=== PATIENT | female | born 1940 | race Caucasian/White ===

== ENCOUNTER → 2018-08-30 | Outpatient (CLI) | payer MEDICARE ==
[~2018-08-30] MED LIST: CATHETER FLUSH 10 ML SYR IV PRN; HOLD METFORMIN - RECEIVED CONTRAST 20 ML VIAL IV SCH; IOHEXOL 350 MG/ML 150 ML (OMNIPAQUE 350) VIAL IV ONE; NS 50 ML (IVPB) BAG IV ONE
--- NOTE | 2018-08-30 14:50 | Diagnostic Imaging Report ---
INDICATION: Intermittent lower extremity claudication. The patient reportedly also has a right lower extremity graft. Pre-and post-intravenous contrast axial imaging through the abdomen, pelvis and bilateral lower extremities was performed utilizing the CT angiography protocol. Multiplanar, 3-D and MIP re-formations were also performed. No prior studies are available for comparison. Imaging through lung bases demonstrates calcified granuloma right lower lobe. No discrete liver mass is identified. Gallbladder appears to be surgically absent. No biliary ductal dilatation is seen. The pancreas and spleen are unremarkable. There is some mild generalized enlargement of the medial limb of the right adrenal gland with a small nodule measuring approximate 10 mm. Left adrenal gland contains a mass measuring 3.1 x 2.4 cm. Mass appears to be fairly low density on precontrast images and may represent adenoma. The kidneys contain cortical low density suggestive of cysts. The small and large bowel loops are normal caliber. Bladder is unremarkable. No abdominal or pelvic lymphadenopathy is seen. CT angiographic portion of the study demonstrates the celiac, SMA and ANA CRISTINA to be patent. There are atherosclerotic changes throughout the abdominal aorta which is normal caliber. There appears to be a stent in the distal abdominal aorta. Both common iliac arteries show some mild atherosclerotic changes but are widely patent. Bilateral external iliac arteries are widely patent. Bilateral common femoral arteries are patent. Superficial femoral and deep femoral profunda origins are widely patent. Bilateral superficial femoral arteries as well as bilateral popliteal arteries are widely patent. No stenosis is seen. The anterior tibial, peroneal and posterior tibial arteries are patent to the ankles bilaterally. IMPRESSION: 1. There are mild atherosclerotic changes throughout the aorta and bilateral lower extremity arterial systems. No high-grade stenosis or occlusion is seen. There is three-vessel runoff to the ankles bilaterally. Dictated by: Dictated on workstation # [id number]
== END ==
LOC: RAD FS 10:44
PROVIDERS: ATTEND Pediatrics
DX: I70.311 Atherosclerosis of unspecified type of bypass graft(s) of the extremities with intermittent claudication, right leg (principal)
CPT/HCPCS: 75635